=== PATIENT | female | born 1960 | race Caucasian/White ===

== ENCOUNTER 2017-04-24 18:35 | Emergency (ER) | payer OTHER, BC ==
[2017-04-24 18:40] VITALS: BP 156/99
[2017-04-24] MEDS ORDERED: Ketorolac 60 MG/2 ML SDV IM ONE (18:44)
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
== END 2017-04-24 19:40 | disposition home or self-care (01) ==
LOC: CC.ED 18:35
DX: S13.9XXA Sprain of joints and ligaments of unspecified parts of neck, initial encounter (principal); S40.012A Contusion of left shoulder, initial encounter; Z88.6 Allergy status to analgesic agent; Z88.5 Allergy status to narcotic agent; Z79.899 Other long term (current) drug therapy; Z87.891 Personal history of nicotine dependence; Y04.8XXA Assault by other bodily force, initial encounter; Y92.009 Unspecified place in unspecified non-institutional (private) residence as the place of occurrence of the external cause
CPT/HCPCS: 72040; 73000; 96372; 99283; J1885

== ENCOUNTER 2023-04-21 13:40 | Inpatient (IN) | payer BC ==
[2023-04-21 13:53] LABS: BASOPHILS ABSOLUTE AUTO 0.04 10^3/uL (0.00-0.50); BASOPHILS PERCENT AUTO 0.5 % (0-1); EOSINOPHILS ABSOLUTE AUTO 0.22 10^3/uL (0.00-1.50); HEMATOCRIT 38.8 % (37.0-47.0); HEMOGLOBIN 12.6 g/dL (12.0-16.0); IMMATURE GRAN ABSOLUTE AUTO 0.01 10^3/uL (0.00-0.49); IMMATURE GRAN PERCENT AUTO 0.1 % (0.0-4.9); LYMPHOCYTES ABSOLUTE AUTO 1.37 10^3/uL (0.60-5.00); LYMPHOCYTES PERCENT AUTO 18.4 % (24-44); MEAN CORPUSCULAR HEMOGLOBIN 30.1 pg (27.0-32.0); MEAN CORPUSCULAR HGB CONC 32.5 g/dL (32.0-36.0); MEAN CORPUSCULAR VOLUME 92.8 fL (83.0-97.0); MONOCYTES ABSOLUTE AUTO 0.44 10^3/uL (0.00-1.50); MONOCYTES PERCENT AUTO 5.9 % (0-10); NEUTROPHILS ABSOLUTE AUTO 5.37 x10^3/uL (1.80-8.00); NEUTROPHILS PERCENT AUTO 72.1 % (41-71); PLATELET COUNT,PLT 279 10^3/uL (150-400); RED BLOOD CELL COUNT 4.18 x10^6/uL (4.00-5.50); WHITE BLOOD CELL COUNT,WBC 7.5 10^3/uL (4.0-11.0)
[2023-04-21 13:55] LABS: APPEARANCE,URINE CLEAR (CLEAR); BILIRUBIN,URINE NEGATIVE (NEGATIVE); COLOR,URINE YELLOW (YELLOW); GLUCOSE,URINE NEGATIVE (NEGATIVE); KETONES,URINE NEGATIVE (NEGATIVE); LEUKOCYTE ESTERASE,URINE NEGATIVE (NEGATIVE); NITRITE,URINE NEGATIVE (NEGATIVE); OCCULT BLOOD,URINE TRACE-INTACT (NEGATIVE); PROTEIN,URINE NEGATIVE (NEGATIVE); UROBILINOGEN,URINE 0.2 EU/dL (0.2-1.0)
[2023-04-21 14:04] LABS: BACTERIA,URINE OCCASIONAL /HPF (NOT SEEN); MUCUS,URINE MANY /HPF (NOT SEEN); RBC,URINE 0-5 /HPF (0-5); SQUAMOUS EPITHELIAL CELLS,UR OCCASIONAL /HPF (NOT SEEN); WBC,URINE 0-5 /HPF (0-5)
[2023-04-21 14:14] LABS: ALANINE AMINOTRANSFERASE,ALT 43 U/L (12-78); ALBUMIN 3.5 g/dL (3.4-5.0); ALKALINE PHOSPHATASE 198 U/L (46-116); ASPARTATE AMNIOTRANSFERASE,AST 33 U/L (15-37); BILIRUBIN TOTAL 0.4 mg/dL (0.0-1.0); BLOOD UREA NITROGEN,BUN 17 mg/dL (7-18); C-REACTIVE PROTEIN 2.57 mg/dL (<=0.30); CALCIUM 9.2 mg/dL (8.4-10.1); CARBON DIOXIDE,CO2 31 mmol/L (21-32); CHLORIDE,CL 103 mEq/L (98-106); GLUCOSE RANDOM 101 mg/dL (75-99); POTASSIUM,K 4.7 mEq/L (3.5-5.0); PRO B-TYPE NATRIUR PEPT,BNPPRO 92 pg/mL (0-1000); PROTEIN TOTAL,TP 7.8 g/dL (6.4-8.2); SODIUM,NA 141 mEq/L (136-145)
[2023-04-21 14:31] LABS: ESTIMATED GFR 64 mL/min (>=60)
[2023-04-21] MEDS ORDERED: Iopamidol 755 Mg/ML 100 ML Bottle IVPUSH ONE (14:37)
[2023-04-21] MEDS ORDERED: Docusate Sodium 100 MG Cap PO PRN (16:11)
[2023-04-21] MEDS ORDERED: Acetaminophen 325 MG Tab PO PRN (16:11)
[2023-04-21] MEDS ORDERED: Sodium Chloride 0.9% 10 ML Syringe FLUSH PRN (16:11)
[2023-04-21] MEDS ORDERED: Ondansetron 4 MG Tab.DIS PO PRN (16:11)
[2023-04-21] MEDS ORDERED: Ondansetron 4 MG/2 ML SDV IV PRN (16:11)
[2023-04-21] MEDS ORDERED: Heparin Sodium 5,000 Units/ML Vial IVPUSH ONE ×2 (16:37→17:15)
[2023-04-21] MEDS ORDERED: Sodium Chloride 0.9% 1,000 ML IV ONE (16:46)
[2023-04-21] MEDS: Morphine 2 MG/ML SYRINGE IVPUSH PRN (17:11)
[2023-04-21] MEDS ORDERED: traMADol 50 MG Tab PO SCH (17:15)
[2023-04-21] MEDS: Heparin Sodium/0.45% NaCl 500 ML IV SCH (17:28)
[2023-04-21] MEDS: Gabapentin 300 MG Cap PO SCH (19:40)
[2023-04-21] MEDS: ARIPiprazole 10 MG Tab PO SCH (19:40)
[2023-04-21] MEDS: cloNIDine 0.1 MG Tab PO SCH (19:40)
[2023-04-21] MEDS: traMADol 50 MG Tab PO SCH (20:05)
[2023-04-22] MEDS: Morphine 2 MG/ML SYRINGE IVPUSH PRN (00:15)
[2023-04-22] MEDS: traMADol 50 MG Tab PO SCH ×4 (01:30→20:26)
[2023-04-22] MEDS: Levothyroxine 50 MCG Tab PO SCH (07:34)
[2023-04-22] MEDS: DULoxetine 30 MG Cap PO SCH (07:34)
[2023-04-22] MEDS: Gabapentin 300 MG Cap PO SCH ×3 (07:34→20:26)
[2023-04-22 07:41] LABS: BASOPHILS ABSOLUTE AUTO 0.03 10^3/uL (0.00-0.50); BASOPHILS PERCENT AUTO 0.4 % (0-1); EOSINOPHILS ABSOLUTE AUTO 0.25 10^3/uL (0.00-1.50); EOSINOPHILS PERCENT AUTO 3.5 % (0-6); HEMATOCRIT 33.3 % (37.0-47.0); HEMOGLOBIN 10.8 g/dL (12.0-16.0); IMMATURE GRAN ABSOLUTE AUTO 0.01 10^3/uL (0.00-0.49); IMMATURE GRAN PERCENT AUTO 0.1 % (0.0-4.9); LYMPHOCYTES ABSOLUTE AUTO 2.04 10^3/uL (0.60-5.00); LYMPHOCYTES PERCENT AUTO 28.9 % (24-44); MEAN CORPUSCULAR HEMOGLOBIN 30.3 pg (27.0-32.0); MEAN CORPUSCULAR HGB CONC 32.4 g/dL (32.0-36.0); MEAN CORPUSCULAR VOLUME 93.5 fL (83.0-97.0); MONOCYTES ABSOLUTE AUTO 0.53 10^3/uL (0.00-1.50); MONOCYTES PERCENT AUTO 7.5 % (0-10); NEUTROPHILS ABSOLUTE AUTO 4.21 x10^3/uL (1.80-8.00); NEUTROPHILS PERCENT AUTO 59.6 % (41-71); PLATELET COUNT,PLT 240 10^3/uL (150-400); RED BLOOD CELL COUNT 3.56 x10^6/uL (4.00-5.50); WHITE BLOOD CELL COUNT,WBC 7.1 10^3/uL (4.0-11.0)
[2023-04-22 07:46] LABS: CALCIUM 8.4 mg/dL (8.4-10.1); CREATININE 0.9 mg/dL (0.6-1.0); EST CRCL DRUG DOSING (CG) 59.81 mL/min; POTASSIUM,K 4.3 mEq/L (3.5-5.0)
[2023-04-22] MEDS ORDERED: Non-Formulary Medication 1 Each (Duloxetine Hcl [Cymbalta] 60 MG Capsule.Dr) PO SCH (08:00)
[2023-04-22] MEDS: LISDEXAMFETAMINE 70 MG PO SCH (08:57)
[2023-04-22] MEDS: Heparin Sodium/0.45% NaCl 500 ML IV SCH (14:25)
[2023-04-22] MEDS: cloNIDine 0.1 MG Tab PO SCH (20:26)
[2023-04-22] MEDS: ARIPiprazole 10 MG Tab PO SCH (20:26)
[2023-04-23] MEDS: traMADol 50 MG Tab PO SCH ×2 (01:18→07:32)
[2023-04-23] MEDS: DULoxetine 30 MG Cap PO SCH (07:31)
[2023-04-23] MEDS: Gabapentin 300 MG Cap PO SCH (07:32)
[2023-04-23] MEDS: Levothyroxine 50 MCG Tab PO SCH (07:32)
[2023-04-23] MEDS: LISDEXAMFETAMINE 70 MG PO SCH (07:39)
[2023-04-23] MEDS ORDERED: Apixaban 5 MG Tab PO ONE (09:21)
[2023-04-23 09:26] LABS: BASOPHILS ABSOLUTE AUTO 0.04 10^3/uL (0.00-0.50); BASOPHILS PERCENT AUTO 0.6 % (0-1); EOSINOPHILS ABSOLUTE AUTO 0.21 10^3/uL (0.00-1.50); EOSINOPHILS PERCENT AUTO 3.2 % (0-6); HEMOGLOBIN 11.6 g/dL (12.0-16.0); IMMATURE GRAN ABSOLUTE AUTO 0.03 10^3/uL (0.00-0.49); IMMATURE GRAN PERCENT AUTO 0.5 % (0.0-4.9); LYMPHOCYTES PERCENT AUTO 25.5 % (24-44); MEAN CORPUSCULAR HGB CONC 32.2 g/dL (32.0-36.0); MONOCYTES ABSOLUTE AUTO 0.37 10^3/uL (0.00-1.50); MONOCYTES PERCENT AUTO 5.6 % (0-10); NEUTROPHILS ABSOLUTE AUTO 4.31 x10^3/uL (1.80-8.00); NEUTROPHILS PERCENT AUTO 64.6 % (41-71); PLATELET COUNT,PLT 258 10^3/uL (150-400); RED BLOOD CELL COUNT 3.87 x10^6/uL (4.00-5.50); WHITE BLOOD CELL COUNT,WBC 6.7 10^3/uL (4.0-11.0)
[2023-04-23 09:33] LABS: CREATININE 0.9 mg/dL (0.6-1.0); EST CRCL DRUG DOSING (CG) 59.81 mL/min; POTASSIUM,K 4.3 mEq/L (3.5-5.0)
[2023-04-23 10:07] VITALS: BP 111/62
[2023-04-23 11:25] VITALS: PULSE 91
== END 2023-04-23 11:15 | disposition home or self-care (01) | DRG 134 ==
LOC: CC.FCMC 13:40 → CC.MS 13:40 → UNDOADMIN 15:53 → CC.MS 15:53
PROVIDERS: ADMIT Nurse Practitioner; ATTEND Nurse Practitioner
DX: I26.93 Single subsegmental thrombotic pulmonary embolism without acute cor pulmonale (principal); E03.9 Hypothyroidism, unspecified; I10 Essential (primary) hypertension; M17.9 Osteoarthritis of knee, unspecified; F32.A Depression, unspecified; E78.00 Pure hypercholesterolemia, unspecified; F41.9 Anxiety disorder, unspecified; M19.90 Unspecified osteoarthritis, unspecified site; M50.30 Other cervical disc degeneration, unspecified cervical region; M79.7 Fibromyalgia; E78.5 Hyperlipidemia, unspecified; G47.00 Insomnia, unspecified; E55.9 Vitamin D deficiency, unspecified; Z88.5 Allergy status to narcotic agent; Z79.899 Other long term (current) drug therapy; Z90.710 Acquired absence of both cervix and uterus; Z98.890 Other specified postprocedural states; Z79.890 Hormone replacement therapy; Z79.01 Long term (current) use of anticoagulants
CPT/HCPCS: 36415; 71046; 71275; 80048; 80053; 81001; 83880; 84484; 85025; 85379; 85730; 86140; 93005; 99223; 99233; 99239; A9270-GY; J1644; J2270; J7030; Q9967